=== PATIENT | male | born 1960 | race Caucasian/White ===

== ENCOUNTER 2022-09-21 22:38 | Emergency (ER) | payer MEDICAID ==
[2022-09-21 23:02] LABS: MUDS CUTOFF CONCENTRATIONS CUTOFF CONC BELOW:
[2022-09-21 23:05] LABS: BILIRUBIN,URINE NEGATIVE (NEGATIVE); GLUCOSE, URINE (UA) 100 mg/dL (NEGATIVE); KETONES,URINE (UA) NEGATIVE (NEGATIVE); LEUKOCYTE ESTERASE, URINE NEGATIVE (NEGATIVE); NITRITE,URINE NEGATIVE (NEGATIVE); OCCULT BLOOD,URINE NEGATIVE (NEGATIVE); PROTEIN,URINE NEGATIVE (NEGATIVE); UROBILINOGEN,URINE 0.2 (NORMAL) E.U./dL (NORMAL)
--- NOTE | 2022-09-21 23:05 | ED Physician Documentation ---
PD HPI MHE - Stated complaint Stated Complaint: SI - Chief complaint Chief Complaint: MHE - History obtained from History obtained from: Patient - Additional information Additional information: Patient is a 62-year-old presenting for evaluation of suicidal thoughts. He states he wants to hurt himself and says that if he leaves here he is going to. He has plan is to overdose on medications however he states he does not know how to get a hold of medications.He also tells me that he cannot tell me the whole story and then Goes on about people watching his sister but will not tell me who these people are. He reportedly was outside and bystanders heard him talking to himself and shouting so called 911. Patient is voluntary and does want to get help. He does admit to meth use 3 days ago.He states he is on medications for high blood pressure and denies being on any medications for his mental health.Patient is homeless. Review of Systems Constitutional: denies: Fever Cardiac: denies: Chest pain / pressure Respiratory: denies: Dyspnea GI: denies: Abdominal Pain Neurologic: denies: Headache PD PAST MEDICAL HISTORY - Past Medical History Past Medical History: Yes Cardiovascular: Hypertension Psych: Other Musculoskeletal: Chronic back pain Other Past Medical History: SI - Past Surgical History Past Surgical History: No - Present Medications Home Medications: Ambulatory Orders Medication Instructions Recorded Confirmed Lisinopril [Zestril] 20 mg PO DAILY 09/21/22 09/21/22 Trazodone HCl 100 mg PO QPM 09/21/22 09/21/22 hydroCHLOROthiazide [Hydrodiuril] 25 mg PO DAILY 09/21/22 09/21/22 - Allergies Allergies/Adverse Reactions: Allergies Allergy/AdvReac Type Severity Reaction Status Date / Time No Known Drug Allergies Allergy Verified 09/21/22 22:56 - Social History Does the pt smoke?: Yes Smoking Status: Current every day smoker Does the pt drink ETOH?: No Does the pt have substance abuse?: Yes Substance Use and Type: Meth - Immunizations Immunizations are current?: Yes - POLST Patient has POLST: No PD ED PE NORMAL - General General: Alert and oriented X 3, No acute distress, Well developed/nourished - HEENT HEENT: Atraumatic - Neck Neck: Supple, no meningeal sign - Cardiac Cardiac: RRR - Respiratory Respiratory: No respiratory distress, Clear bilaterally - Abdomen Abdomen: Soft, Non tender - Derm Derm: Warm and dry - Extremities Extremities: No edema - Neuro Neuro: Alert and oriented X 3, gambling supervisor 2-12 intact, No motor deficit, No sensory deficit, Normal speech - Psych Psych: Other (Pressured speech, loud at times, intense But cooperative) Results - Vitals Vitals: Vital Signs - 24 hr 09/21/22 09/21/22 09/21/22 22:43 22:50 22:57 Temperature 37.0 C 37.0 C 37.0 C Heart Rate 82 82 82 Respiratory 18 18 18 Rate Blood Pressure 140/78 H 140/78 H 140/78 H O2 Saturation 98 98 98 Oxygen O2 Source Room air - EKG (time done) 0307 Rate: Rate (enter#) (58) Rhythm: NSR Intervals: No: Prolonged QT Ischemia: T wave inversion. No: ST elevation c/w ischemia Other comments: Other comments (Motion artifact in Multiple precordial leads) Compare to prior EKG: Old EKG unavailable - Labs Labs: Laboratory Tests 09/21/22 09/21/22 09/21/22 22:25 22:58 23:11 WBC 9.2 RBC 4.46 L Hgb 14.3 Hct 40.6 L MCV 91.0 MCH 32.1 H MCHC 35.2 RDW 11.9 L Plt Count 288 MPV 8.9 Neut # (Auto) 6.0 Lymph # (Auto) 2.4 [place] # (Auto) 0.7 Eos # (Auto) 0.1 Baso # (Auto) 0.1 Absolute Nucleated RBC 0.00 Nucleated RBC % 0.0 Sodium Potassium Chloride Carbon Dioxide Anion Gap BUN Creatinine Estimated GFR (MDRD) Glucose Calcium Magnesium Total Bilirubin AST ALT Alkaline Phosphatase Total Creatine Kinase Total Protein Albumin Globulin Albumin/Globulin Ratio Lipase TSH Urine Color YELLOW Urine Clarity CLEAR Urine pH 6.0 Ur Specific [place] 1.020 Urine Protein NEGATIVE Urine Glucose (UA) 100 H Urine Ketones NEGATIVE Urine Occult Blood NEGATIVE Urine Nitrite NEGATIVE Urine Bilirubin NEGATIVE Urine Urobilinogen 0.2 (NORMAL) Ur Leukocyte Esterase NEGATIVE Ur Microscopic Review NOT INDICATED Urine Culture Comments NOT INDICATED Salicylates Urine Opiates Screen NEGATIVE Ur Oxycodone Screen NEGATIVE Urine Methadone Screen NEGATIVE Ur Propoxyphene Screen NEGATIVE Acetaminophen Ur Barbiturates Screen NEGATIVE Ur Tricyclics Screen NEGATIVE Ur Phencyclidine Scrn NEGATIVE Ur Amphetamine Screen POSITIVE H U Methamphetamines Scrn POSITIVE H U Benzodiazepines Scrn POSITIVE H Urine Cocaine Screen NEGATIVE U Cannabinoids Screen NEGATIVE Ethyl Alcohol SARS-CoV-2 (PCR) NOT DETECTED 09/21/22 09/21/22 09/22/22 23:11 23:11 03:05 WBC RBC Hgb Hct MCV MCH MCHC RDW Plt Count MPV Neut # (Auto) Lymph # (Auto) [place] # (Auto) Eos # (Auto) Baso # (Auto) Absolute Nucleated RBC Nucleated RBC % Sodium 143 143 Potassium 3.0 L 3.1 L Chloride 101 105 Carbon Dioxide 27 26 Anion Gap 15.0 H 12.0 BUN 54 H 46 H Creatinine 2.3 H 2.0 H Estimated GFR (MDRD) 29 L 34 L Glucose 134 H 136 H Calcium 9.6 8.8 Magnesium Total Bilirubin 0.6 AST 22 ALT 33 Alkaline Phosphatase 71 Total Creatine Kinase Total Protein 7.0 Albumin 3.8 Globulin 3.2 Albumin/Globulin Ratio 1.2 Lipase 47 TSH 0.40 Urine Color Urine Clarity Urine pH Ur Specific [place] Urine Protein Urine Glucose (UA) Urine Ketones Urine Occult Blood Urine Nitrite Urine Bilirubin Urine Urobilinogen Ur Leukocyte Esterase Ur Microscopic Review Urine Culture Comments Salicylates < 6.0 Urine Opiates Screen Ur Oxycodone Screen Urine Methadone Screen Ur Propoxyphene Screen Acetaminophen < 10 L Ur Barbiturates Screen Ur Tricyclics Screen Ur Phencyclidine Scrn Ur Amphetamine Screen U Methamphetamines Scrn U Benzodiazepines Scrn Urine Cocaine Screen U Cannabinoids Screen Ethyl Alcohol < 5.0 SARS-CoV-2 (PCR) 09/22/22 09/22/22 03:05 03:05 WBC RBC Hgb Hct MCV MCH MCHC RDW Plt Count MPV Neut # (Auto) Lymph # (Auto) [place] # (Auto) Eos # (Auto) Baso # (Auto) Absolute Nucleated RBC Nucleated RBC % Sodium Potassium Chloride Carbon Dioxide Anion Gap BUN Creatinine Estimated GFR (MDRD) Glucose Calcium Magnesium 1.8 Total Bilirubin AST ALT Alkaline Phosphatase Total Creatine Kinase 214 Total Protein Albumin Globulin Albumin/Globulin Ratio Lipase TSH Urine Color Urine Clarity Urine pH Ur Specific [place] Urine Protein Urine Glucose (UA) Urine Ketones Urine Occult Blood Urine Nitrite Urine Bilirubin Urine Urobilinogen Ur Leukocyte Esterase Ur Microscopic Review Urine Culture Comments Salicylates Urine Opiates Screen Ur Oxycodone Screen Urine Methadone Screen Ur Propoxyphene Screen Acetaminophen Ur Barbiturates Screen Ur Tricyclics Screen Ur Phencyclidine Scrn Ur Amphetamine Screen U Methamphetamines Scrn U Benzodiazepines Scrn Urine Cocaine Screen U Cannabinoids Screen Ethyl Alcohol SARS-CoV-2 (PCR) PD Medical Decision Making - ED course Complexity details: reviewed results, re-evaluated patient, d/w patient ED course: 2350 - Labs reviewed. Significant for elevated creatinine of 2.3 and low potassium of 3.0. No prior labs for comparison in our system or through [facility]. When I asked patient if he has ever been told he has kidney problems, he tells me that 1 week ago he was at [facility] and they did mention this to him. He states that he was there for 3 days. We will attempt to get records from recent visit. Patient though goes on to state that he is from [place] but recently came down to [place] for a job and then took the train over here. He was headed towards [place]. Patient presenting for evaluation of suicidal thoughts. He is voluntary. He does admit to meth use recently. He is cooperative and does not require medications for agitation. Screening labs were obtained. He was noted to have a creatinine of 2.3 and low potassium of 3.0.I have unsure of what his baseline renal function is as this is his first visit to would be. Patient states that he has been told he has abnormal kidney labs in the past. I was able to obtain outside records.He had an admission in the middle of this month for hypertensive emergency and BRUON. He also presented there with SI. On discharge his creatinine was 1.2.After receiving IV fluids his creatinine did improve from 2.3-2.His potassium however did not significantly change after p.o. replacement. IV replacement was also ordered as well as additional fluids.I will plan to recheck his chemistry once his IV potassium has been infused. I am hopeful that his creatinine will come down below 2 at which point I feel he could be medically cleared for psychiatric evaluation. I also expect potassium to normalize with the replacements he has received as well as eating breakfast this morning.Patient to be signed out at shift change to oncoming provider. Records from [facility] were reviewed. Patient was admitted from September 10 to September 13.He was admitted for hypertensive emergency with acute kidney injury, elevated troponin, methamphetamine abuse and suicidal ideation. Per their note he has a history notable for paroxysmal atrial fibrillation, hypertension and alcohol abuse who presented to the emergency department via EMS and placed escort due to patient making statements about wanting to hurt himself and acting agitated at a bus stop.He was found to be hypertensive with a BP of 215/127. He had acute kidney injury with a creatinine of 1.88 (Prior to that was 1.05 on Sep 05). CT scan from September 05 made note of right-sided 11 mm mass on right kidney consistent with cyst with debris versus solid mass. He also had a CT KUB that showed an intermediate density exophytic lesion within the midpole the right kidney. Reportedly patient was aware of the mass and did not want to pursue further treatment. He was discharged on September 13.He had been evaluated by psychiatry there who started him on Zoloft 25mg. He was also prescribed hydrochlorothiazide 25 mg and lisinopril 20 mg.On day of discharge his creatinine was 1.2
[2022-09-21 23:07] LABS: CLARITY,URINE CLEAR (CLEAR)
[2022-09-21 23:19] LABS: AMPHETAMINE SCREEN,URINE POSITIVE (NEGATIVE); BARBITURATE SCREEN,UR NEGATIVE (NEGATIVE); BENZODIAZEPINES SCREEN, URINE POSITIVE (NEGATIVE); COCAINE SCREEN URINE NEGATIVE (NEGATIVE); METHADONE SCREEN, URINE NEGATIVE (NEGATIVE); METHAMPHETAMINES SCREEN, URINE POSITIVE (NEGATIVE); OPIATE SCREEN, URINE NEGATIVE (NEGATIVE); OXYCODONE SCREEN, URINE NEGATIVE (NEGATIVE); PROPOXYPHENE SCREEN, URINE NEGATIVE (NEGATIVE); THC CANNABINOID SCREEN, URINE NEGATIVE (NEGATIVE); TRICYCLIC ANTIDEPRESSANT,URINE NEGATIVE (NEGATIVE)
[2022-09-21 23:20] LABS: BASOPHILS # (AUTO) 0.1 10^3/uL (0.0-0.1); BASOPHILS % (AUTO) 0.5 %; EOSINOPHILS # (AUTO) 0.1 10^3/uL (0.0-0.7); EOSINOPHILS % (AUTO) 0.8 %; HCT - HEMATOCRIT 40.6 % (42.0-52.0); HGB - HEMOGLOBIN 14.3 g/dL (14.0-18.0); LYMPHOCYTES # (AUTO) 2.4 10^3/uL (1.5-3.5); MEAN CORPUSCULAR HEMOGLOBIN 32.1 pg (27.0-31.0); MEAN CORPUSCULAR HGB CONC 35.2 g/dL (32.0-36.0); MEAN PLATELET VOLUME 8.9 fL (7.4-11.4); MONOCYTES # (AUTO) 0.7 10^3/uL (0.0-1.0); MONOCYTES % (AUTO) 7.1 %; NEUTROPHILS % (AUTO) 65.4 %; PLT - PLATELET COUNT 288 10^3/uL (130-450); RED BLOOD COUNT 4.46 10^6/uL (4.70-6.10); RED CELL DISTRIBUTION WIDTH 11.9 % (12.0-15.0); WHITE BLOOD COUNT 9.2 x10^3/uL (4.8-10.8)
[2022-09-21 23:38] LABS: ACETAMINOPHEN < 10 ug/mL (10-30); ALBUMIN 3.8 g/dL (3.2-5.5); ALBUMIN/GLOBULIN RATIO 1.2 (1.0-2.2); ALKALINE PHOSPHATASE 71 IU/L (42-121); ALT ALANINE AMINOTRANSFERASE 33 IU/L (10-60); AST ASPARTATE AMINOTRANSFERASE 22 IU/L (10-42); BILIRUBIN,TOTAL 0.6 mg/dL (0.2-1.0); BUN - BLOOD UREA NITROGEN 54 mg/dL (6-20); CALCIUM 9.6 mg/dL (8.5-10.3); CARBON DIOXIDE - CO2 27 mmol/L (21-32); CHLORIDE 101 mmol/L (101-111); CREATININE 2.3 mg/dL (0.6-1.2); ETOH - ETHANOL < 5.0 mg/dL; GFR - MDRD 29 (>89); GLUCOSE 134 mg/dL (70-100); LIPASE 47 U/L (22-51); SALICYLATE < 6.0 mg/dL; SODIUM 143 mmol/L (135-145)
[2022-09-21] MEDS ORDERED: SODIUM CHLORIDE 0.9% 2,000 ML IV STA (23:56)
[2022-09-21] MEDS ORDERED: POTASSIUM CHLORIDE 20 MEQ TABLET PO STA (23:56)
[2022-09-22 03:18] LABS: CALCIUM 8.8 mg/dL (8.5-10.3); POTASSIUM 3.1 mmol/L (3.5-5.0)
[2022-09-22] MEDS ORDERED: SODIUM CHLORIDE 0.9% 1,000 ML IV STA (03:24)
[2022-09-22] MEDS ORDERED: POTASSIUM CHLOR 10 MEQ/100 ML 10 MEQ/100 ML BAG IV STA (03:33)
[2022-09-22] MEDS: POTASSIUM CHLOR 10 MEQ/100 ML 10 MEQ/100 ML BAG IV SCH ×3 (05:00→07:04)
[2022-09-22] MEDS ORDERED: LORazepam 2 MG/ML VIAL IVP STA (07:53)
[2022-09-22] MEDS ORDERED: OLANZapine ODT 5 MG TABLET TL ONE (07:54)
--- NOTE | 2022-09-22 07:59 | ED Physician Documentation ---
ED Addendum - Addendum Addendum: 09/22/22 07:54 The patient is conversant and awake. He is having feeling of anxiousness. He is talking openly about history of prior meth use. He would like to not keep using it but he states that habitation is very strong and he gets drawn back to it a couple times a year he says. He does have some element of paranoid thinking with statements of "they will have me just disappear as a missing person". I asked who "they" are and he does not have a particular person or such. He does have suicidal ideation but no particular plan at this point and is actually concerned about being "disappeared". I did offer medication to help him relax as he does seem a bit anxious. Initial ly he declined but subsequently did except some medication. At this point we are continuing IV hydration as well as potassium supplements. We will recheck his blood test here in a little bit as these received a couple of doses of the IV potassium as well as further hydration. Were hoping to see his creatinine into the level below 2. His baseline appears to be 1.2 on a recent hospitalization at [facility]. He had had some BRUNO with creatinine 1.8 that improved to 1.2. Presume from dehydration and poor oral intake as well as potential some dehydrating effect of the meth. He appears well physically at this point. Vitals are good with normal pressure and heart rate.
[2022-09-22] MEDS: lisinopriL 20 MG TABLET PO SCH (08:34)
[2022-09-22] MEDS: hydroCHLOROthiazide 25 MG TABLET PO SCH (08:34)
[2022-09-22 09:13] LABS: CALCIUM 8.4 mg/dL (8.5-10.3); CREATININE 1.7 mg/dL (0.6-1.2); POTASSIUM 3.3 mmol/L (3.5-5.0)
[2022-09-22] MEDS: POTASSIUM CHLORIDE 20 MEQ/15 ML UDC PO SCH (20:30)
--- NOTE | 2022-09-23 04:03 | TELEPSYCH PHYS NOTE ---
Telepsych Consultation Note Consult: Name: LLOYD SAWYEROB: 1960 DateandTime: 09/23/2022 6:29:34 AM [facility] Adam Length of consult: 60min This evaluation was conducted via video telepsychiatry with the assistance of onsite staff Reason for consult: suicidal and homicidal Requested by: Nurse History of Present Illness: 62y/o swm with h/o substance abuse comes in with c/o feeling depressed and suicidal with thoughts of overdosing. He says he is going to do something if we discharge him and "it ain't going to be good...you guys won't believe me and I am serious this time." PT reports drug dealers after him and plans to hurt a bunch of people. HE says he uses methamphetamine but "I'm sober now and I am serious" PT says he has not been sleeping, he feels weak and has nightmares. HE denied hearing voices but said he has a h/o seeing things. HE feels unsafe and that people are watching him. HE has attempted suicide before about a year ago. HE denied alcohol or other drugs stating he just uses methamphetamine. HE does not have an outpatient provider. HE has nobody for collateral Collateral Contacted: Janelle for not contacting the collateral:None available Sleep issues?: YesSleep Quantity:unable to quantifySleep Quality:poor Psychiatric History/Treatment History: Past diagnoses: substance abuse Hospitalizations: YesDescription:2 prior Current Treatment:No Suicide Assessment: PSS-3: 1) Over the past 2 weeks have you felt down, depressed or hopeless?Yes 2) Over the past 2 weeks have you had thoughts of killing yourself?Yes 3) Have you ever in your life attempted to kill yourself?Yes Within the past 6 months?No PSS-3 Secondary Screen: 1) Positive on PSS-3 questions 2 & 3 active SI with a past attempt?Yes 2) Have you been thinking about how you might kill yourself?Yes 3) Have you had some intention of acting on your thoughts?Yes 4) Lifetime psychiatric hospitalization?Yes 5) Has drinking or substance abuse ever been a problem for you?Yes Description:methamphetamine 6) Current irritability, agitation, or aggression?Yes PSS-3 Secondary Screen Scoring: Severe Notes: 6 Mild(0-2) No current attempt and no plan/intent Moderate(3-4) No current attempt, Plan OR intent but not both Severe(5-6) Current Attempt with Plan AND intent [facility] Safety Assessment: Risk Factors Stressors: no supports Attempts/Self-injury: YesDescription: Impulsivity:Unknown-NA Drug/Alcohol History:YesDescription:methamphetamine Trauma History:YesDescription:nightmares but would not say what happened Access to firearms:No HI/Violence/Property destruction:YesDescription:HE says he is going to do some damage if and when he leaves Legal: No Family Psych History:No Family History of suicide:No Protective Factors: Can handle stress well?No Holiness?No External: Social supports/ Therapeutic relationships: No Relationship history: single Living situation: homeless 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 Education: highschool Responsibility to family/children/work: No Future orientation:No Health History: Medical History: htn Medications & Freq: lisinopril HCTZ Allergies: NKDA Mental Status Exam: Appearance and Attire:Unkempt Psychomotor agitation:Psychomotor agitation Attitude and behavior:Agitated, Hostile Speech:Rapid, Pressured Mood:Manic Affect:Labile Thought process:Vague, Racing thoughts Thought content:Suicidal ideation, Homicidal ideation, Paranoia, Post traumatic stress disorder symptoms Perception:Visual hallucinations Intel:Average Abstract:Poor reasoning Language:No abnormality Orientation:Oriented to person, Oriented to place Sense:Distractible Knowledge:unable to assess Memory:unable to assess Insight:Lack of awareness of problems, Failure to recognize benefits of treatment, Lack of motivation to change health risk behaviors, Severe impairment Judgement:Severe impairment, Impaired in interactions with others, Impaired in response and decision making, Impaired in responses to current situation and behavior, Impaired in self care, Impaired in treatment compliance Gait:Did not observe Impression/Risk Assessment: Current Suicide Risk Elevated?Yes Description:thoughts, plans and prior attempts Current Violence Risk Elevated?Yes Description:very hostile, angry, paranoid and abusing substances Issues with ability to care for self?No Summary: PT is a 62y/o swm with h/o substance abuse and mood d/o who comes in with c/o feeling depressed and suicidal with thoughts of overdosing. PT has attempted suicide before. HE says that something really bad is going to happen if and when he leaves because he is going to get them before they get him and nobody will believe him or do anything about it. HE says it is something to do with drug dealers. HE admits to abuse of methamphetamine but said he is sober now and still knows they are after him. 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 HE denied having any supports. HE denied family hx of mental health issues. He is homeless and presents paranoid, agitated, loud, pressured with suicidal and homicidal thoughts. 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 Level of Care: involuntary inpatient psych dual dx Psychiatric Clearance: No Observation level 1:1 needed?: YesNotes:Or close observation per house protocol Pharmacological: Zyprexa 10mg po qhs Zyprexa 5mg po/im q 4h prn agitation/psychosis NTe 40mg qd (hold if QTC over 500) Patient psychotic?YesWas a standing psychotic ordered?YesDescription: Therapy: supportive, substance, trauma Follow up needed while in the hospital?: YesNumber of times:Please consult psych as needed while awaiting inpatient bed Discussed plan with onsite cylinder steamer: Yes Who Tosin Mendez MD Other: Patient would meed criteria for involuntary should he opt to sign out List names and roles of persons who participated in consult: Krystle Coffman MD
--- NOTE | 2022-09-23 06:04 | ED Physician Documentation ---
ED Addendum - Addendum Addendum: 09/23/22 06:02 The patient was signed out to me at change of shift, pending mental health evaluation after presenting with a history of methamphetamine abuse, paranoia, and chronic homelessness with some suicidal Ideation. Telepsych consult has been placed quite a few hours before and was still pending. The patient was calm overnight, and during the night, the telemetry psychiatrist was able to evaluate him. They felt that he posed enough risk to need inpatient treatment, but noted that he was voluntary. The patient continued to stay in the emergency department voluntarily for the remainder of my shift. Given that the patient is voluntary, we will continue the plan to have him see social work when they come in for the day in several hours.
--- NOTE | 2022-09-23 08:01 | ED Physician Documentation ---
ED Addendum - Addendum Addendum: 09/23/22 07:59 The patient reportedly rested okay through the evening and overnight. He had been awakened for telepsych consultation approximately 3:57 in the morning. The telepsych consult have been placed yesterday morning around 9 AM. He was resting again this morning and aroused readily for breakfast and to get repeat blood test. I thought it reasonable to recheck his electrolytes again this morning to ensure steady improvement. We can also course correct if needed. Telepsych did recommend inpatient voluntary treatment and starting of medication of Zyprexa 10 mg at night and 5 mg every 6 hours if needed for agitation. They also recommended another medication of 40 mg but its printed as "NTe 40 mg" and unclear what this is. We will contact telepsych and see if they can clarify the medication name. We can have the nurses try to contact some facilities and otherwise social work in this morning will pick that up as well.
[2022-09-23 08:08] LABS: CALCIUM 8.8 mg/dL (8.5-10.3); CREATININE 1.6 mg/dL (0.6-1.2); POTASSIUM 3.4 mmol/L (3.5-5.0)
[2022-09-23] MEDS: POTASSIUM CHLORIDE 20 MEQ/15 ML UDC PO SCH (08:35)
[2022-09-23] MEDS: hydroCHLOROthiazide 25 MG TABLET PO SCH (08:35)
[2022-09-23] MEDS: lisinopriL 20 MG TABLET PO SCH (08:36)
[2022-09-23] MEDS ORDERED: OLANZapine ODT 5 MG TABLET TL SCH (09:00)
[2022-09-23 15:11] VITALS: BP 180/97
== END 2022-09-23 15:49 ==
LOC: ED 22:38
DX: R45.851 Suicidal ideations (principal); E87.6 Hypokalemia; N17.9 Acute kidney failure, unspecified; F15.222 Other stimulant dependence with intoxication with perceptual disturbance; F39 Unspecified mood [affective] disorder; F43.10 Post-traumatic stress disorder, unspecified; F17.200 Nicotine dependence, unspecified, uncomplicated; Z59.00 Homelessness unspecified; Z20.822 Contact with and (suspected) exposure to COVID-19
CPT/HCPCS: 36415; 80048; 80053; 80306; 80307; 80320; 80329; 81003; 82550; 83690; 83735; 84443; 85025; 87635; 90834; 93005; 96361; 96365; 96366; 96368; 96375; 99284; 99285; A9270; J2060; Q3014; 81001; 87086